=== PATIENT | female | born 1940 | race Caucasian/White ===

== ENCOUNTER → 2017-03-12 | Outpatient (CLI) | payer MEDICARE, BC ==
[~2017-03-12] MED LIST: CARV25TA PO; ESTR0.5T3 PO; LISI10TA2 PO; SIMV20TA3 PO
--- NOTE | 2017-03-13 14:34 | ECHOCARDIOGRAPHY REPORT ---
DATE OF SERVICE: 03/12/2017 REFERRING PHYSICIAN: Ashley Castro MD MEASUREMENT: LVID end diastolic 4.4, IVS thickness 1.0, LVPW thickness 1.0, left atrial diameter 3.4, ejection fraction 60%. FINDINGS: 1. Technical quality is good. 2. The left ventricle is normal in size with normal contractility, systolic function appeared to be normal. Estimated ejection fraction is 60%. 3. The left atrium is normal in size. No clot or thrombus were seen within the left atrium. 4. The right atrium and right ventricle are normal in size. No clot or thrombus were seen within the right side. 5. Mitral valve is normal in morphology with mild mitral regurgitation noted by color Doppler flow. No mitral valve prolapse. No mitral valve stenosis. 6. Aortic valve is trileaflet with normal opening and closing pattern, no significant aortic valve stenosis was noted. Trace aortic regurgitation noted by color Doppler flow. 7. Tricuspid valve is normal in morphology with mild tricuspid regurgitation noted by color Doppler flow. Doppler across the tricuspid valve estimated pulmonary artery pressure of 28+ right atrial pressure. 8. Pulmonic valve is functioning normally. 9. No pericardial effusion. CONCLUSION: 1. Normal left ventricular size and systolic function, estimated ejection fraction 60%. 2. Mild mitral and tricuspid regurgitation. 3. Trace aortic regurgitation. 4. Estimated pulmonary artery pressure of 35 mmHg. Job ID: [id number] DocumentID: [id number] Dictated Date: 03/13/2017 10:26:39 Assembler Trim Date: 03/13/2017 12:31:41 Dictated By: GABRIELA BRADY MD
== END ==
LOC: CARD 11:34
PROVIDERS: ATTEND Internal Medicine Cardiovascular Disease
DX: I10 Essential (primary) hypertension (principal); E78.2 Mixed hyperlipidemia; I73.9 Peripheral vascular disease, unspecified; M19.90 Unspecified osteoarthritis, unspecified site; I08.2 Rheumatic disorders of both aortic and tricuspid valves; I08.1 Rheumatic disorders of both mitral and tricuspid valves
CPT/HCPCS: 93306

== ENCOUNTER → 2017-06-08 | Outpatient (CLI) | payer MEDICARE, BC ==
--- NOTE | 2017-06-08 12:57 | Diagnostic Imaging Report ---
INDICATION: Screening. The current study was also evaluated with a Computer Aided Detection (CAD) system. FINDINGS: There is a moderate amount of residual fibroglandular tissue bilaterally. There are a few unchanged nodular densities in the left breast. There are vascular calcifications and scattered benign-type calcifications. There is no new dominant mass, spiculated lesion, or suspicious calcification identified. The skin, nipples, and axillae are unremarkable. IMPRESSION: Benign. ACR BI-RADS Category 2: Benign findings. Result letter will be mailed to the patient. Note: At least 10% of breast cancer is not imaged by mammography. Dictated by: Dictated on workstation # [id number]
== END ==
LOC: RAD 11:33
PROVIDERS: ATTEND Nurse Practitioner Family
DX: Z12.31 Encounter for screening mammogram for malignant neoplasm of breast (principal)
CPT/HCPCS: 77067

== ENCOUNTER → 2018-07-25 | Outpatient (CLI) | payer MEDICARE, BC ==
--- NOTE | 2018-07-25 13:27 | Diagnostic Imaging Report ---
INDICATION: Routine screening. COMPARISON: 06/08/2017 and 05/14/2016. TECHNIQUE: 2D and 3D bilateral screening mammography was performed with CAD. FINDINGS: Scattered fibroglandular densities are identified bilaterally. Scattered benign-appearing parenchymal and vascular calcifications are seen bilaterally. No dominant mass or malignant appearing microcalcifications are seen. The axillae are unremarkable. IMPRESSION: No mammographic features suspicious for malignancy are identified. ACR BI-RADS Category 2: Benign findings. Result letter will be mailed to the patient. Note: At least 10% of breast cancer is not imaged by mammography. Dictated by: Dictated on workstation # [id number]
== END ==
LOC: RAD 10:53
PROVIDERS: ATTEND Nurse Practitioner Family
DX: Z12.31 Encounter for screening mammogram for malignant neoplasm of breast (principal)
CPT/HCPCS: 77067

== ENCOUNTER → 2019-08-01 | Outpatient (CLI) | payer MEDICARE, BC ==
--- NOTE | 2019-08-01 13:29 | Diagnostic Imaging Report ---
INDICATION: Routine screening. Comparison is made with prior mammograms from 07/25/2018 and 06/08/2017. 2-D and 3-D bilateral screening mammography was performed. The current study was also evaluated with a Computer Aided Detection (CAD) system. 3-D tomosynthesis was also performed and reviewed. FINDINGS: Scattered fibroglandular densities are identified bilaterally. Diffuse bilateral benign-appearing parenchymal and vascular calcifications are identified. No mass or malignant-appearing microcalcifications are seen. Axillae are unremarkable. IMPRESSION: No mammographic features suspicious for malignancy are identified. ACR BI-RADS Category 2: Benign findings. Result letter will be mailed to the patient. Note: At least 10% of breast cancer is not imaged by mammography. Dictated by: Dictated on workstation # [id number]
== END ==
LOC: RAD 11:20
PROVIDERS: ATTEND Nurse Practitioner Family
DX: Z12.31 Encounter for screening mammogram for malignant neoplasm of breast (principal)
CPT/HCPCS: 77067

== ENCOUNTER → 2019-09-05 | Outpatient (CLI) | payer MEDICARE, BC ==
--- NOTE | 2019-09-05 13:07 | Diagnostic Imaging Report ---
INDICATION: Osteopenia, postmenopausal state. COMPARISON: May 14, 2016. FINDINGS: AP Spine L1-L4: [BMD (g/cm2): .911] [T-Score: -2.4] [Z-Score: -0.7] [BMD Previous: 0.992] [BMD % Change: -8.2] LT Hip Neck: [BMD (g/cm2): 0.801] [T-Score: -1.7] [Z-Score: 0.3] LT Hip Total: [BMD (g/cm2):0.904] [T-Score:-0.8] [Z-Score: 1.0] [BMD Previous: 0.969] [BMD % Change: -6.7] RT Hip Neck: [BMD (g/cm2):0.791] [T-Score:-1.8] [Z-Score:0.2] RT Hip Total: [BMD (g/cm2):0.919] [T-score:-0.7] [Z-Score:1.1] [BMD Previous:0.964] [BMD % Change:-4.7] *Indicates significant change from prior examination based on 95% confidence level. World Health Organization criteria for BMD interpretation classify patients as Normal (T-score at or above -1.0), Osteopenic (T-score between -1.0 and -2.5) or Osteoporotic (T-score at or below -2.5). LIMITATIONS AND MODIFICATION: None. FRACTURE RISK (FRAX SCORE): The ten year probability of (%): Major Osteoporotic Fracture: [14.0] Hip Fracture: [3.6] IMPRESSION: 1. Osteopenia (Low bone mass). 2. No significant change in bone mineral density since prior examination. 3. See below National Osteoporosis Foundation guidelines on when to potentially initiate pharmacologic therapy. Based on the National Osteoporosis Foundation Guidelines, pharmacologic treatment should be initiated in any of the following, unless clinical conditions suggest otherwise: * Any patient with prior fragility fracture of the hip or vertebrae. A spine fracture indicates 5X risk for subsequent spine fracture and 2X risk for subsequent hip fracture. * Osteoporosis (T-score <-2.5). * Postmenopausal women and men age 50 and older with low bone mass/osteopenia (T-score between -1.0 and -2.5) by DXA and 10-year major osteoporotic fracture greater than 20% or a 10-year probability of hip fracture greater than 3%. These fracture risks are supplied above in the FRAX score, if applicable. * Clinician judgement and/or patient preferences may indicate treatment for people with 10-year fracture probabilities above or below these levels. Dictated by: Dictated on workstation # [id number]
== END ==
LOC: RAD 10:26
PROVIDERS: ATTEND Family Medicine
DX: M85.89 Other specified disorders of bone density and structure, multiple sites (principal); Z78.0 Asymptomatic menopausal state
CPT/HCPCS: 77080

== ENCOUNTER 2020-07-09 05:55 | Outpatient (RCR) | payer MEDICARE, BC ==
[~2020-07-09] VITALS: Ht 160 cm; Wt 65.9 kg
[~2020-07-09 05:55] MED LIST changes: +SIMV20TA26 PO; -SIMV20TA3 PO
[2020-07-09] MEDS ORDERED: BRIM5DRO OS (13:13)
[2020-07-09] MEDS ORDERED: CARB15DR2 OP (13:13)
[2020-07-09] MEDS ORDERED: [UNRECOGNIZED DRUG - CODE] OD (13:13)
[2020-07-09] MEDS ORDERED: MULT-1136 PO (13:13)
[2020-07-09] MEDS ORDERED: BIMA2.5D4 OS (13:13)
[2020-07-09] MEDS ORDERED: BIOT25007 PO (13:13)
[2020-07-09] MEDS ORDERED: OMEP20TA7 PO (13:13)
[2020-07-09] MEDS ORDERED: CALC-794 PO (13:13)
[2020-07-09] MEDS ORDERED: GLUC-144 PO (13:13)
[2020-07-09] MEDS ORDERED: NF-LOTEOS OS (13:13)
[2020-07-09] MEDS ORDERED: OMG1KC PO (13:13)
[2020-07-09] MEDS ORDERED: POLY17PO6 PO (13:13)
[2020-07-09] MEDS ORDERED: LISI-552 PO (13:13)
[2020-07-09] MEDS ORDERED: CARV12.53 PO (13:13)
== END 2020-07-09 13:24 | disposition home or self-care (01) ==
LOC: PREOP 05:55 → EDSTATUS 12:30 → PREOP 13:24
PROVIDERS: ATTEND Surgery
DX: Z01.818 Encounter for other preprocedural examination (principal); Z01.812 Encounter for preprocedural laboratory examination; N60.01 Solitary cyst of right breast; Z20.828 Contact with and (suspected) exposure to other viral communicable diseases
CPT/HCPCS: 87635

== ENCOUNTER 2020-07-11 10:45 | Day surgery (SDC) | payer MEDICARE, BC ==
[2020-07-11] VITALS (11 sets, daily range): BP systolic 118–199; BP diastolic 57–101
[~2020-07-11] VITALS: Ht 160 cm; Wt 65.9 kg
[~2020-07-11 10:45] MED LIST changes: +BIMA2.5D4 OS; +BIOT25007 PO; +BRIM5DRO OS; +CALC-794 PO; +CARB15DR2 OP; +CARV12.53 PO; +GLUC-144 PO; +LISI-552 PO; +MULT-1136 PO; +NF-LOTEOS OS; +OMEP20TA7 PO; +OMG1KC PO; +POLY17PO6 PO; +[UNRECOGNIZED DRUG - CODE] OD
[2020-07-11] MEDS ORDERED: LACTATED RINGERS 1,000 ML IV PRN (10:50)
[2020-07-11] MEDS ORDERED: ceFAZolin INJECTION 1,000 MG in WATER (STERILE) FOR INJECTION 10 ML IV ONE (11:00)
[2020-07-11] MEDS ORDERED: LIDOCAINE PF 2% 5 ML (XYLOCAINE) VIAL ONE (11:14)
[2020-07-11] MEDS ORDERED: SEVOFLURANE (ULTANE) 15 ML INHAL SOLN ONE (11:14)
[2020-07-11] MEDS ORDERED: proPOfol 200 MG/20 ML (DIPRIVAN) VIAL IV ONE (11:14)
[2020-07-11] MEDS ORDERED: fentaNYL INJECTION 100 MCG/2 ML AMP ONE (11:14)
[2020-07-11] MEDS ORDERED: ONDANSETRON 4 MG/2 ML (SDV) Z0FRAN ONE ×2 (11:14→11:25)
[2020-07-11] MEDS ORDERED: BUP/EPI 0.25% 1:200,000 (MARCAINE) 30 ML VIAL ONE (11:16)
[2020-07-11] MEDS ORDERED: FAMOTIDINE 20MG/2ML IV (PEPCID) ONE (11:26)
[2020-07-11] MEDS ORDERED: FAMOTIDINE 20MG/2ML IV (PEPCID) IV ONE (11:30)
[2020-07-11] MEDS ORDERED: ONDANSETRON 4 MG/2 ML (SDV) Z0FRAN IV ONE (11:30)
--- NOTE | 2020-07-11 11:40 | Progress Note-Pre Operative ---
Pre-Operative Progress Note H&P Reviewed The H&P was reviewed, patient examined and no changes noted. Date Seen by Provider: Jul 11, 2020 Time Seen by Provider: 11:40 Date H&P Reviewed: Jul 11, 2020 Time H&P Reviewed: 11:40 Pre-Operative Diagnosis: right breast cyst AMANDEEP LAMAR DO Jul 11, 2020 11:40
[2020-07-11] MEDS ORDERED: HYDR-4226 PO (12:17)
--- NOTE | 2020-07-11 12:18 | Discharge Inst-Simple/Standard ---
Discharge Inst-Standard Discharge Medications New, Converted or Re-Newed RX: RX on Chart Patient Instructions/Follow Up Plan of Care/Instructions/FU: 2-3 weeks Cristina Activity as Tolerated: No Discharge Diet: Regular Diet Other Inst to Patient Follow up Appt: Make appointment for 2-3 weeks. Instructions: No lifting greater than 10 pounds. No strenuous activity. May shower in 24 hours, no tub bath or soaking. Use incentive spirometer at home as directed. No Smoking Skin/Wound Care: You have special glue over your incision that will fall off on it's own. Symptoms to Report: Appetite Changes, Extremity Discoloration, Numbness/Tingling, Swelling Increased, Bleeding Excessive, Eyesight Changes, Pain Increased, Urine Color Change, Constipation(Persistent), Fever over 101 degree F, Pain/Pressure in chest, Urinating Difficulty, Cough Up/Vomit Blood, Heart Beat Irreg/Pounding, Pain/Pressure in jaw, Vaginal Bleeding Increase, Cramps in feet or legs, Lightheadedness, Pain/Pressure in shoulder, Diarrhea(Persistent), Memory Changes Suddenly, Questions/Concerns, Weight gain consecutive days, Dizziness/Fainting, Nausea/Vomiting, Shortness of Breath, Weight gain over 2 pounds If questions or concerns contact your physician Or seek help at emergency department. AMANDEEP LAMAR DO Jul 11, 2020 12:18
--- NOTE | 2020-07-11 12:20 | Progress Note-Post Operative ---
Post-Operative Progess Note Surgeon (s)/Substation Operator (s) Surgeon AMANDEEP LAMAR DO Substation Operator: na Pre-Operative Diagnosis right breast cyst Post-Operative Diagnosis same Procedure & Operative Findings Date of Procedure 07/11/20 Procedure Performed/Findings excision right breast cyst 2.2x5 cm Anesthesia Type gen Estimated Blood Loss Estimated blood loss (mL): min Specimens/Packing Specimens Removed right breast cyst AMANDEEP LAMAR DO Jul 11, 2020 12:20
[2020-07-11] MEDS ORDERED: ONDANSETRON 4 MG/2 ML (SDV) Z0FRAN IVP PRN (12:30)
[2020-07-11] MEDS ORDERED: HYDROmorphone 2 MG/ML VIAL (DILAUDID) IV ONE (12:30)
--- NOTE | 2020-07-11 17:18 | OPERATIVE REPORT ---
DATE OF SERVICE: 07/11/2020 PREOPERATIVE DIAGNOSIS: Right breast cyst. POSTOPERATIVE DIAGNOSIS: Right breast cyst. PROCEDURE: Excision of right breast cyst, 2.2 x 5 cm. SURGEON: Amandeep Evans DO ANESTHESIA: General. ESTIMATED BLOOD LOSS: Minimal. COMPLICATIONS: None. SPECIMENS: Right breast cyst, skin and subcutaneous tissue. INDICATIONS: The patient is a 79-year-old female with a right breast cyst. She was explained risks and benefits of procedure and wished to proceed with procedure. Consent was signed in the chart. DESCRIPTION OF PROCEDURE: The patient was taken to the operating room. She was prepped and draped in sterile fashion. Timeout was performed. Local anesthetic was infiltrated around the cyst. An elliptical incision measuring 2.2 x 5 cm was made around it. Cautery was used to dissect down to the subcutaneous tissues, removing the skin and subcutaneous tissue entirely. Hemostasis was achieved. Wound was then irrigated with copious amounts of irrigation and suction. Subcutaneous tissues were then reapproximated using 3-0 Vicryl and the skin was then closed using Skin Affix. The patient tolerated the procedure well without any complications. She was taken to recovery room in stable condition. Job ID: [id number] DocumentID: [id number] Dictated Date: 07/11/2020 12:22:37 Final Application Reviewer Date: 07/11/2020 17:17:45 Dictated By: AMANDEEP EVANS DO
--- NOTE | 2020-07-12 14:43 | Anesthesia-General Post-Op ---
General Patient Condition Mental Status/LOC: Same as Preop Cardiovascular: Satisfactory Nausea/Vomiting: Absent Respiratory: Satisfactory Pain: Controlled Complications: Absent Post Op Complications Complications None Follow Up Care/Instructions Patient Instructions None needed. Anesthesia/Patient Condition Patient Condition Patient is doing well, no complaints, stable vital signs, no apparent adverse anesthesia problems. No complications reported per nursing. D/C home per [facility] [place] Criteria: Yes LEELA MUNSON CRNA Jul 12, 2020 14:43
== END 2020-07-11 14:45 | disposition home or self-care (01) ==
LOC: SDC 10:45
PROVIDERS: ATTEND Surgery
DX: N60.01 Solitary cyst of right breast (principal); I10 Essential (primary) hypertension; K21.9 Gastro-esophageal reflux disease without esophagitis; E78.2 Mixed hyperlipidemia; M19.90 Unspecified osteoarthritis, unspecified site; I73.9 Peripheral vascular disease, unspecified; I35.1 Nonrheumatic aortic (valve) insufficiency; Z79.899 Other long term (current) drug therapy; Z88.3 Allergy status to other anti-infective agents; Z88.8 Allergy status to other drugs, medicaments and biological substances; Z80.9 Family history of malignant neoplasm, unspecified; Z82.3 Family history of stroke
CPT/HCPCS: 87081; 88304

== ENCOUNTER 2020-07-13 10:21 | Emergency (ER) | payer MEDICARE, BC ==
[~2020-07-13] VITALS: Ht 152.4 cm; Wt 65.7 kg
[~2020-07-13 10:21] MED LIST changes: +HYDR-4226 PO
[2020-07-13 10:35] VITALS: BP 205/107
--- NOTE | 2020-07-13 10:38 | ED Integumentary General ---
General Chief Complaint: Post OP Complications/Pain Stated Complaint: POST CYST REMOVAL/LEAKING FLUID History of Present Illness Date Seen by Provider: Jul 13, 2020 Time Seen by Provider: 10:37 Initial Comments 79-year-old female presents for a recheck of a postop incision. 2 days ago patient had cyst removal on her right breast by Dr. Lamar. Then incision was approximated and closed with glue. She was concerned when she took the dressing off that she may have pulled off some of the glue since her with some mild drainage. Patient has no pain, swelling erythema or other concerns. Allergies and Home Medications Allergies Coded Allergies: terbinafine (Verified Allergy, Intermediate, ITCHING, 07/09/20) tramadol (Verified Allergy, Intermediate, DIZZINESS, 07/09/20) Home Medications Bimatoprost 2.5 Ml Drops, 2.5 ML OS HS, (Reported) Biotin 2,500 Mcg Capsule, 2,500 MCG PO DAILY, (Reported) Brimonidine Tartrate/Timolol 5 Ml Drops, 5 ML OS BID, (Reported) Calcium Carb & Citrate/Vit D3 1 Each Tablet.er, 1 EACH PO DAILY, (Reported) Carboxymethylcellulos/Glycerin 15 Ml Drops, 15 ML OP TID, (Reported) Carvedilol 12.5 Mg Tablet, 12.5 MG PO BID, (Reported) Glucosamine HCl/Chondr Olivares A Na 1 Each Tablet, 1 EACH PO DAILY, (Reported) Hydrocodone/Acetaminophen 1 Each Tablet, 1 TAB PO Q4-6HR Prescribed by: AMANDEEP LAMAR on 07/11/20 1217 Lisinopril 20 Mg Tablet, 20 MG PO DAILY, (Reported) Loteprednol Etabonate 5 Ml Drops, 5 ML OS BID, (Reported) Mineral Oil 2 Ml Vial, 2 ML OD DAILY, (Reported) Multivitamin 1 Each Tablet, 1 EACH PO DAILY, (Reported) Standish 3 Polyunsat Fatty Acids 1,000 Mg Cap, 2,000 MG PO BID, (Reported) Omeprazole 20 Mg Tablet.dr, 20 MG PO DAILY, (Reported) Polyethylene Glycol 3350 17 Gm Powd.pack, 17 GM PO DAILY, (Reported) Patient Home Medication List Home Medication List Reviewed: Yes Review of Systems Review of Systems Constitutional: no symptoms reported EENTM: no symptoms reported Respiratory: no symptoms reported Cardiovascular: no symptoms reported Gastrointestinal: no symptoms reported Skin: see HPI Past Leotzmt-Renxdu-Coldfh Hx Past Med/Social Hx: Reviewed Nursing Past Med/Soc Hx Patient Social History 2nd Hand Smoke Exposure: No Recent Foreign Travel: No Contact w/Someone Who Travel: No Recent Hopitalizations: No Immunizations Up To Date Date of Pneumonia Vaccine: Aug 16, 2013 Seasonal Allergies Seasonal Allergies: No Past Medical History Surgeries: Yes (LAP SAMY, CORNEAL TRANSPLANT, CATARACTS, HEMORRHOIDECTOMY, D&C, RECTAL) Appendectomy, Section, Hysterectomy, Tonsillectomy Respiratory: No Cardiac: Yes Hypertension, Valvular Heart Disease 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 Sexually Transmitted Disease: No HIV/AIDS: No Genitourinary: No Gastrointestinal: Yes Gastroesophageal Reflux, Chronic Constipation Musculoskeletal: Yes Arthritis Endocrine: No HEENT: Yes (GLASSES) Loss of Vision: Denies Hearing Impairment: Denies Cancer: No Psychosocial: No Blood Disorders: No Adverse Reaction/Blood Tranf: No (N/A) Physical Exam Vital Signs Capillary Refill : General Appearance: WD/WN, no apparent distress Cardiovascular: normal peripheral pulses, regular rate, rhythm Respiratory: lungs clear, normal breath sounds Gastrointestinal: non tender, soft Extremities: non-tender, normal inspection Skin Problem Location: other (right breast) Skin Problem Character: other (postop incision was clean dry, no signs of infection, was approximately 8 cm with an approximate 1 cm area where the glue had came off with the dressing.) Progress/Results/Core Measures Progress Progress Note : Time: 10:47 Progress Note Incision was clean and dry. I did apply a small amount of skin adhesive over the lateral aspect of her there is a very small dehiscence of approximately 1 cm for patient's comfort. Patient was discharged home and should follow this Dr. Lamar as needed Departure Impression Primary Impression: Encounter for postoperative wound check Disposition: HOME, SELF-CARE Condition: Stable Departure-Patient Inst. Referrals: OREN HOSKINS MD (PCP/Family) Primary Care Physician Patient Instructions: Laceration Repair With Glue (DC), Wound Care (DC) Add. Discharge Instructions: Keep her next scheduled appointment with KEYONNA Dale DO Jul 13, 2020 10:38
== END 2020-07-13 11:00 | disposition home or self-care (01) ==
LOC: EDUNIT# 10:21 → ER 10:23
DX: Z48.01 Encounter for change or removal of surgical wound dressing (principal); K21.9 Gastro-esophageal reflux disease without esophagitis; I10 Essential (primary) hypertension; Z88.5 Allergy status to narcotic agent; Z20.828 Contact with and (suspected) exposure to other viral communicable diseases; Z88.8 Allergy status to other drugs, medicaments and biological substances
CPT/HCPCS: 99281

== ENCOUNTER → 2021-03-07 | Outpatient (CLI) | payer MEDICARE, BC ==
[~2021-03-07] MED LIST changes: -LISI-552 PO; -LISI10TA2 PO; +LISI10TA25 PO; +LISI20TA26 PO
== END ==
LOC: CARD 11:00
PROVIDERS: ATTEND Internal Medicine Cardiovascular Disease
DX: I11.9 Hypertensive heart disease without heart failure (principal); I35.1 Nonrheumatic aortic (valve) insufficiency
CPT/HCPCS: 93306

== ENCOUNTER → 2021-05-02 | Outpatient (CLI) | payer MEDICARE, BC ==
--- NOTE | 2021-05-02 14:02 | Diagnostic Imaging Report ---
INDICATION: Routine screening. COMPARISON is made with prior mammograms from 08/01/2019 and 07/25/2018. 2-D and 3-D bilateral screening mammography was performed with CAD. Both breasts are heterogeneously dense, limiting the sensitivity of mammography. Benign parenchymal and vascular calcifications are again noted bilaterally. No mass or malignant-appearing microcalcifications are seen. Axillae are unremarkable. IMPRESSION: BI-RADS Category 2 No mammographic features suspicious for malignancy are identified. ACR BI-RADS Category 2: Benign findings. Result letter will be mailed to the patient. Note: At least 10% of breast cancer is not imaged by mammography. Dictated by: Dictated on workstation # [id number]
== END ==
LOC: RAD 11:30
PROVIDERS: ATTEND Family Medicine
DX: Z12.31 Encounter for screening mammogram for malignant neoplasm of breast (principal); M85.80 Other specified disorders of bone density and structure, unspecified site
CPT/HCPCS: 77063; 77067

== ENCOUNTER → 2021-10-21 | Outpatient (CLI) | payer MEDICARE, BC ==
--- NOTE | 2021-10-21 15:29 | Diagnostic Imaging Report ---
INDICATION: Postmenopausal. COMPARISON: 09/05/2019. TECHNIQUE: The bone mineral density of the spine, hips, and femoral necks was measured. FINDINGS: The T score for the spine is -2.3. On the prior exam, the T score was -2.4. The T score for the left femoral neck is -1.6 and for the right -1.1. On the prior exam, the respective T scores were -0.8 and -0.7. The T score for the left femoral neck is -2.3 and for the right femoral neck -2.2. The respective T-scores on the prior exam were -1.7 and -1.8. AP Spine L1-L4: [BMD (g/cm2): 0.923] [T-Score: -2.3] [Z-Score: -0.5] [BMD Previous: 0.911] [BMD % Change: 1.3] LT Hip Neck: [BMD (g/cm2): 0.713] [T-Score: -2.3] [Z-Score: -0.2] LT Hip Total: [BMD (g/cm2):0.808] [T-Score:-1.6] [Z-Score: 0.4] [BMD Previous: 0.904] [BMD % Change: -10.6] RT Hip Neck: [BMD (g/cm2):0.728] [T-Score:-2.2] [Z-Score:-0.1] RT Hip Total: [BMD (g/cm2):0.874] [T-score:-1.1] [Z-Score:0.9] [BMD Previous:0.919] [BMD % Change:-4.9] *Indicates significant change from prior examination based on 95% confidence level. World Health Organization criteria for BMD interpretation classify patients as Normal (T-score at or above -1.0), Osteopenic (T-score between -1.0 and -2.5) or Osteoporotic (T-score at or below -2.5). LIMITATIONS AND MODIFICATION: None. FRACTURE RISK (FRAX SCORE): The ten year probability of (%): Major Osteoporotic Fracture: [18.4] Hip Fracture: [6.1] IMPRESSION: 1. The bone mineral density of the spine has not changed significantly since the prior exam. The T score value continues to indicate severe osteopenia. 2. There has been a decrease in the bone mineral density of the hips and femoral necks, however. The T-scores for the hips indicate osteopenia and for the femoral necks severe osteopenia. 3. See below National Osteoporosis Foundation guidelines on when to potentially initiate pharmacologic therapy. Based on the National Osteoporosis Foundation Guidelines, pharmacologic treatment should be initiated in any of the following, unless clinical conditions suggest otherwise: * Any patient with prior fragility fracture of the hip or vertebrae. A spine fracture indicates 5X risk for subsequent spine fracture and 2X risk for subsequent hip fracture. * Osteoporosis (T-score <-2.5). * Postmenopausal women and men age 50 and older with low bone mass/osteopenia (T-score between -1.0 and -2.5) by DXA and 10-year major osteoporotic fracture greater than 20% or a 10-year probability of hip fracture greater than 3%. These fracture risks are supplied above in the FRAX score, if applicable. * Clinician judgement and/or patient preferences may indicate treatment for people with 10-year fracture probabilities above or below these levels. Dictated by: Dictated on workstation # [id number]
== END ==
LOC: RAD 13:00
PROVIDERS: ATTEND Family Medicine
DX: Z12.31 Encounter for screening mammogram for malignant neoplasm of breast (principal); M85.88 Other specified disorders of bone density and structure, other site; Z78.0 Asymptomatic menopausal state
CPT/HCPCS: 77080

== ENCOUNTER 2021-11-09 18:31 | Emergency (ER) | payer MEDICARE, BC ==
[~2021-11-09] VITALS: Ht 157.5 cm; Wt 65.3 kg
--- NOTE | 2021-11-09 19:12 | ED Cardiac General ---
History of Present Illness General Chief Complaint: Cardiac/General Problems Stated Complaint: HIGH B/P Source: patient Exam Limitations: no limitations History of Present Illness Date Seen by Provider: Nov 09, 2021 Time Seen by Provider: 19:09 Initial Comments To ER with c/o high blood pressure and dizziness. BP up to 219 systolic at home. No chest pain or SOA. Takes carvedilol 12.5mg po BID and lisinopril 20mg po bid. She takes hydralazine 10mg po tid PRN SBP>160. Timing/Duration: 4-6 hours Severity: moderate Activities at Onset: none Prior CP/Workup: no prior chest pain NTG SL VICE PRESIDENT FOR PHILANTHROPY: No ASA po VICE PRESIDENT FOR PHILANTHROPY: No Associated Systoms: Denies Symptoms Allergies and Home Medications Allergies Coded Allergies: terbinafine (Verified Allergy, Intermediate, ITCHING, 07/09/20) tramadol (Verified Allergy, Intermediate, DIZZINESS, 07/09/20) Patient Home Medication List Home Medication List Reviewed: Yes Bimatoprost (Lumigan) 2.5 Ml Drops, 2.5 ML OS HS, (Reported) Entered as Reported by: ROMELIA FUNEZ on 07/09/20 1313 Biotin (Biotin) 2,500 Mcg Capsule, 2,500 MCG PO DAILY, (Reported) Entered as Reported by: ROMELIA FUNEZ on 07/09/20 1313 Brimonidine Tartrate/Timolol (Combigan Eye Drops) 5 Ml Drops, 5 ML OS BID, (Reported) Entered as Reported by: ROMELIA FUNEZ on 07/09/20 1313 Calcium Carb & Citrate/Vit D3 (Calcium + D3 ER Tablet) 1 Each Tablet.er, 1 EACH PO DAILY, (Reported) Entered as Reported by: ROMELIA FUNEZ on 07/09/20 1313 Carboxymethylcellulos/Glycerin (Refresh Optive Eye Drops) 15 Ml Drops, 15 ML OP TID, (Reported) Entered as Reported by: ROMELIA FUNEZ on 07/09/20 1313 Carvedilol (Carvedilol) 12.5 Mg Tablet, 12.5 MG PO BID, (Reported) Entered as Reported by: ROMELIA FUNEZ on 07/09/20 1313 Glucosamine HCl/Chondr Olivares A Na (Osteo Bi-Flex Caplet) 1 Each Tablet, 1 EACH PO DAILY, (Reported) Entered as Reported by: ROMELIA FUNEZ on 07/09/20 131 Hydrocodone/Acetaminophen (Hydrocodone/Acetaminophen 5 MG/325 MG TAB) 1 Each Tablet, 1 TAB PO Q4-6HR Prescribed by: AMANDEEP LAMAR on 07/11/20 1217 Lisinopril (Lisinopril) 20 Mg Tablet, 20 MG PO DAILY, (Reported) Entered as Reported by: ROMELIA FUNEZ on 07/09/20 131 Loteprednol Etabonate (Lotemax) 5 Ml Drops, 5 ML OS BID, (Reported) Entered as Reported by: ROMELIA FUNEZ on 07/09/20 131 Mineral Oil (Muri-Lube Mineral Oil) 2 Ml Vial, 2 ML OD DAILY, (Reported) Entered as Reported by: ROMELIA FUNEZ on 07/09/20 131 Multivitamin (Multivitamin) 1 Each Tablet, 1 EACH PO DAILY, (Reported) Entered as Reported by: ROMELIA FUNEZ on 07/09/20 131 [place] 3 Polyunsat Fatty Acids (Fish Oil 1,000 mg Capsule) 1,000 Mg Cap, 2,000 MG PO BID, (Reported) Entered as Reported by: ROMELIA FUNEZ on 07/09/20 131 Omeprazole (Omeprazole) 20 Mg Tablet.dr, 20 MG PO DAILY, (Reported) Entered as Reported by: ROMELIA FUNEZ on 07/09/20 131 Polyethylene Glycol 3350 (Miralax) 17 Gm Powd.pack, 17 GM PO DAILY, (Reported) Entered as Reported by: ROMELIA FUNEZ on 07/09/20 131 Review of Systems Review of Systems Constitutional: see HPI, dizziness EENTM: No Symptoms Reported Respiratory: No Symptoms Reported Cardiovascular: No Symptoms Reported Gastrointestinal: See HPI Genitourinary: No Symptoms Reported Musculoskeletal: no symptoms reported Skin: no symptoms reported Psychiatric/Neurological: No Symptoms Reported Endocrine: No Symptoms Reported Past Kzezaph-Hxravt-Wcdayu Hx Patient Social History Tobacco Use?: No Use of E-Cig and/or Vaping dev: No Substance use?: No Alcohol Use?: No Pt feels they are or have been: No Immunizations Up To Date Influenza Vaccine Up-to-Date: No; Not Current Seasonal Allergies Seasonal Allergies: No Past Medical History Surgeries: Yes (LAP SAMY, CORNEAL TRANSPLANT, CATARACTS, HEMORRHOIDECTOMY, D&C, RECTAL) Appendectomy, Section, Hysterectomy, Tonsillectomy Respiratory: No Cardiac: Yes Hypertension, Valvular Heart Disease Neurological: No HYDRAULIC SPECIALIST History: Hysterectomy Sexually Transmitted Disease: No HIV/AIDS: No Genitourinary: No Gastrointestinal: Yes Gastroesophageal Reflux, Chronic Constipation Musculoskeletal: Yes Arthritis Endocrine: No HEENT: Yes (GLASSES) Loss of Vision: Denies Hearing Impairment: Denies Cancer: No Psychosocial: No Blood Disorders: No Adverse Reaction/Blood Tranf: No (N/A) Physical Exam Vital Signs Vital Signs - First Documented 11/09/21 18:45 Temp 36.7 Pulse 88 Resp 18 B/P (MAP) 227/117 (153) Pulse Ox 95 O2 Delivery Room Air Capillary Refill : Less Than 3 Seconds Height, Weight, BMI Height: 5'3.00" Weight: 139lbs. 0.0oz. 63.388199qu; 28.00 BMI Method: General Appearance: No Apparent Distress, WD/WN, Anxious, Other (BP 227/119 HR 75 sinus. Ambulatory to room 5. Alert and oriented, gcs 15. ) HEENT: PERRL/EOMI, TMs Normal (small amount of cerumen in right external ear canal easily removed with curette. ) Neck: Full Range of Motion, Normal Inspection Respiratory: No Accessory Muscle Use, No Respiratory Distress Cardiovascular: Regular Rate, Rhythm, Normal Peripheral Pulses Gastrointestinal: Normal Bowel Sounds, Non Tender, Soft Extremity: Normal Capillary Refill, Normal Inspection Neurologic/Psychiatric: Alert, Oriented x3 Skin: Normal Color, Warm/Dry Progress/Results/Core Measures Results/Orders Lab Results Laboratory Tests Test 11/09/21 19:05 Range/Units White Blood Count 5.7 4.3-11.0 10^3/uL Red Blood Count 4.29 3.80-5.11 10^6/uL Hemoglobin 13.0 11.5-16.0 g/dL Hematocrit 39 35-52 % Mean Corpuscular Volume 91 80-99 fL Mean Corpuscular Hemoglobin 30 25-34 pg Mean Corpuscular Hemoglobin Concent 33 32-36 g/dL Red Cell Distribution Width 13.6 10.0-14.5 % Platelet Count 203 130-400 10^3/uL Mean Platelet Volume 10.0 9.0-12.2 fL Immature Granulocyte % (Auto) 0 % Neutrophils (%) (Auto) 71 42-75 % Lymphocytes (%) (Auto) 22 12-44 % Monocytes (%) (Auto) 5 0-12 % Eosinophils (%) (Auto) 1 0-10 % Basophils (%) (Auto) 1 0-10 % Neutrophils # (Auto) 4.0 1.8-7.8 10^3/uL Lymphocytes # (Auto) 1.2 1.0-4.0 10^3/uL Monocytes # (Auto) 0.3 0.0-1.0 10^3/uL Eosinophils # (Auto) 0.1 0.0-0.3 10^3/uL Basophils # (Auto) 0.0 0.0-0.1 10^3/uL Immature Granulocyte # (Auto) 0.0 0.0-0.1 10^3/uL Sodium Level 138 135-145 MMOL/L Potassium Level 4.2 3.6-5.0 MMOL/L Chloride Level 103 98-107 MMOL/L Carbon Dioxide Level 22 21-32 MMOL/L Anion Gap 13 5-14 MMOL/L Blood Urea Nitrogen 20 H 7-18 MG/DL Creatinine 1.01 0.60-1.30 MG/DL Estimat Glomerular Filtration Rate 56 BUN/Creatinine Ratio 20 Glucose Level 116 H 70-105 MG/DL Calcium Level 9.5 8.5-10.1 MG/DL My Orders Orders - PATRICIO DAMON APRN Cbc With Automated Diff (11/09/21 19:08) Basic Metabolic Panel (11/09/21 19:08) Clonidine Tablet (Catapres Tablet) (11/09/21 19:15) Medications Given in ED Current Medications Medications Dose Ordered Sig/[place] Route Start Time Stop Time Status Last Admin Dose Admin Clonidine HCl 0.2 mg ONCE ONCE PO 11/09/21 19:15 11/09/21 19:16 DC 11/09/21 19:21 0.2 MG Vital Signs/I&O 11/09/21 18:45 Temp 36.7 Pulse 88 Resp 18 B/P (MAP) 227/117 (153) Pulse Ox 95 O2 Delivery Room Air Departure Communication (Admissions) 2051-blood pressure 227/119 on arrival. Down to 169/82 at this time. Going to discharge home follow-up with Dr. Castro. Impression Primary Impression: Hypertension Disposition: 01 HOME, SELF-CARE Condition: Stable Departure-Patient Inst. Decision time for Depature: 20:53 Referrals: OREN CASTRO MD (PCP/Family) Primary Care Physician Patient Instructions: High Blood Pressure in Adults Copy Copies To 1: OREN CASTRO MD, PETER J APRN Nov 09, 2021 19:12
[2021-11-09 19:15] LABS: BASOPHILS % (AUTO) 1 % (0-10); EOSINOPHILS # (AUTO) 0.1 10^3/uL (0.0-0.3); EOSINOPHILS % (AUTO) 1 % (0-10); HEMATOCRIT 39 % (35-52); LYMPHOCYTES # (AUTO) 1.2 10^3/uL (1.0-4.0); LYMPHOCYTES % (AUTO) 22 % (12-44); MEAN CORPUSCULAR HEMOGLOBIN 30 pg (25-34); MEAN CORPUSCULAR HGB CONC 33 g/dL (32-36); MEAN CORPUSCULAR VOLUME 91 fL (80-99); MONOCYTES # (AUTO) 0.3 10^3/uL (0.0-1.0); MONOCYTES % (AUTO) 5 % (0-12); NEUTROPHILS % (AUTO) 71 % (42-75); PLATELET COUNT 203 10^3/uL (130-400); WHITE BLOOD COUNT 5.7 10^3/uL (4.3-11.0)
[2021-11-09] MEDS ORDERED: cloNIDine 0.1 MG (CATAPRES) TAB PO ONE (19:15)
[2021-11-09 19:30] LABS: CALCIUM 9.5 MG/DL (8.5-10.1); CREATININE SERUM 1.01 MG/DL (0.60-1.30); POTASSIUM 4.2 MMOL/L (3.6-5.0)
[2021-11-09] MEDS ORDERED: ONDANSETRON 4 MG (ZOFRAN) ORAL DISSOLVE TAB PO ONE (21:00)
[2021-11-09 21:07] VITALS: BP 182/86
== END 2021-11-09 21:08 | disposition home or self-care (01) ==
LOC: EDUNIT# 18:31 → ER 18:38
DX: I10 Essential (primary) hypertension (principal); K21.9 Gastro-esophageal reflux disease without esophagitis; Z79.899 Other long term (current) drug therapy
CPT/HCPCS: 36415; 80048; 85025

== ENCOUNTER → 2021-12-29 | Outpatient (CLI) | payer MEDICARE, BC ==
[~2021-12-29] VITALS: Ht 157 cm; Wt 63.0 kg
[~2021-12-29] MED LIST changes: +REGADENOSON 0.4 MG/5 ML SYR (LEXISCAN) IV ONE
[2021-12-29] MEDS: CATHETER FLUSH 10 ML SYR IVP PRN ×2 (07:39→09:08)
[2021-12-29 09:07] VITALS: BP 138/90
--- NOTE | 2021-12-29 11:44 | Cardiology Stress Test Report ---
Stress Test Report Date of Procedure/Referring: Date of Procedure: Dec 29, 2021 PCP Gabriela Coppola MD Admitting Physician Ashley Castro MD Indications: HTN Baseline Heart Rate: 67 Baseline Blood Pressure: Blood Pressure Systolic: 138 Blood Pressure Diastolic: 90 Baseline Vitals Vital Signs Date Time Temp Pulse Resp B/P (MAP) Pulse Ox O2 Delivery O2 Flow Rate FiO2 12/29/21 09:07 67 16 138/90 (106) 95 Room Air Baseline EKG: Baseline EKG: NSR Summary After explaining the procedure to the patient, she signed a consent and then brought to the stress nuclear laboratory. Patient received 0.4 mg Lexiscan for stress test, ECG, heart rate and blood pressure were monitored continuously. Resting and stress dose of radio tracer were injected, imaging was acquired and reviewed in short axis, horizontal long axis and vertical long axis views. TID: 1.03 SSS: 1 SDS: 1 EF: 74 1. Patient tolerated Lexiscan well 2. Baseline sinus rhythm persisted during test 3. No significant ischemia or infarction on SPECT images 4. Normal left ventricular size, ejection fraction 74% GABRIELA COPPOLA MD Dec 29, 2021 11:44
== END ==
LOC: CARD 08:15
PROVIDERS: ATTEND Internal Medicine Cardiovascular Disease
DX: I10 Essential (primary) hypertension (principal); I25.10 Atherosclerotic heart disease of native coronary artery without angina pectoris
CPT/HCPCS: 78452; 93017; A9502